=== PATIENT | female | born 1990 | race Caucasian/White ===

== ENCOUNTER 2017-07-26 21:10 | Emergency (ER) | payer OTHER ==
[2017-07-26] VITALS (10 sets, daily range): BP systolic 106–141; BP diastolic 54–70; PULSE 73–89; TEMP 98.1
[~2017-07-26 21:10] MED LIST: FOLI1 PO; IBUP600 PO; METO25 PO; PREN0.01 PO
--- NOTE | 2017-07-26 21:30 | PD ---
HPI Chief Complaint RUQ pain Date Seen: Jul 26, 2017 Time Seen: 21:26 Travel History International Travel<30 Days: No Contact w/Intl Traveler<30Days: No Known Affected Area: No History of Present Illness HPI 26y/o @ 37.2wks. She has PNC with Dr. Villavicencio. She presents today for evaluation of RUQ pain. Pt states that she has been experiencing similar pain nearly daily for a month. It occurs after she eats. It started up again this evening around 7pm. She denies LOF/VB/ctx. +FM. Weeks Gestation: 37 Para: 2 : 5 History Past Medical History Medical History: Denies Significant Hx Obstetric History Obstetric History x2 SAB x2 Past Surgical History Narrative Surgical D&C for SAB Family History Family History: Negative Social History Alcohol Use: No Tobacco Use: No Substance Abuse: No Allergies-Medications (Allergen,Severity, Reaction): Coded Allergies: codeine (Unverified Allergy, Mild, RASH, 01/30/17) Home Meds Active Scripts Ibuprofen (Motrin 600 Mg Tab) 600 Mg Tab, 600 MG PO Q6H for Pain Management, # 30 TAB Prov:Carley Mullins MD 09/10/15 Metoprolol Tartrate 25 mg (Metoprolol Tartrate 25 mg) 25 Mg Tab, 25 MG PO Q6HR Y for PALPITATIONS, #30 TAB 0 Refills Prov:Curt Valdez MD 06/23/15 Reported Medications Folic Acid (Folate 1 Mg Tab) 1 Mg Tab, 2000 MCG PO DAILY, TAB 04/29/14 Multivit/Min/Fol Ac/Iron/Pren ( Vit ( Plus)) Tab, 1 TAB PO DAILY, TAB 12/23/13 Review of Systems Except as stated in HPI: all other systems reviewed are Neg Physical Exam Narrative General: well developed, well nourished, no acute distress HEENT: normocephalic atraumatic, extraocular movements intact, neck supple Abdomen: soft, gravid, nondistended, +TTP over RUQ, no rebound, voluntary guarding present Uterus: fundus term Extremities: full range of motion Skin: normal coloration, no rashes, no suspicious skin lesions noted Neurologic: cranial nerves 2-12 grossly intact, normal muscle tone, normal gait Psychiatric: normal mood and affect, appropriate FHTs: [place]: Data Data Vital Signs Reviewed: Yes Orders Orders Vital Signs (Adult) .ON ADMISSION (07/26/17 21:24) ^ Labor Status (07/26/17 21:24) Urinalysis - C+S If Indicated (07/26/17 21:24) ^ Non Stress Test (07/26/17 21:24) Cbc No Diff, Includes Plts (07/26/17 21:24) Comprehensive Metabolic Panel (07/26/17 21:24) Protein Creat Ratio, Random Ur (07/26/17 21:24) Group B Strep: Negative MDM Plan 26y/o @ 37.2wks with RUQ pain. -- FHTs cat 1 -- toco quiet -- pt with symptoms x1m and worse with eating; suspect gallstones; CBC, CMP, Pr:Cr to r/o HELLP; RUQ US ordered Dispo to follow results Diagnosis Diagnosis: Primary Impression: 37 weeks gestation of Additional Impression: RUQ pain Phyllis Paz MD Jul 26, 2017 21:30
[2017-07-26 22:36] LABS: HEMATOCRIT 33.1 % (35.0-46.0); HEMOGLOBIN 11.3 GM/DL (11.6-15.3); MEAN CELL VOLUME 90.4 FL (80.0-100.0); MEAN CORPUSCULAR HEMOGLOBIN 30.8 PG (27.0-34.0); MEAN CORPUSCULAR HGB CONC 34.1 % (32.0-36.0); MEAN PLATELET VOLUME 9.3 FL (7.0-11.0); PLATELET COUNT 163 TH/MM3 (150-450); RED BLOOD COUNT 3.66 MIL/MM3 (4.00-5.30); RED CELL DISTRIBUTION WIDTH 13.3 % (11.6-17.2); WHITE BLOOD COUNT 9.6 TH/MM3 (4.0-11.0)
[2017-07-26 22:37] LABS: BILIRUBIN, URINE NEG (NEG); BLOOD, URINE NEG (NEG); GLUCOSE,URINE NEG (NEG); KETONE, URINE NEG (NEG); NITRITE,URINE NEG (NEG); PH, URINE 6.5 (5.0-8.5); SQUAMOUS EPITHELIAL CELL URINE 12 /hpf (0-5); URINE COLOR LIGHT-YELLOW (YELLW/STRAW); URINE LEUKOCYTE ESTERASE SMALL (NEG)
--- NOTE | 2017-07-26 22:37 | RADRPT ---
EXAM DATE/TIME: 07/26/2017 22:14 [facility] COMPARISON: No previous studies available for comparison. INDICATIONS : Right upper quadrant pain. MEDICAL HISTORY : Hypertension. Seizures. Irregulat heartbeat. Heartburn. Ebstein-kerns sundrome. SURGICAL HISTORY : Dilation and currettage. Left arm pins, removed. ENCOUNTER: Initial ACUITY: 1 month PAIN SCORE: 3/10 LOCATION: Right upper quadrant MEASUREMENTS: LIVER: 16.8 cm length COMMON DUCT: 4 mm RIGHT KIDNEY: 11.5 x 4.3 x 5.9 cm FINDINGS: LIVER: Normal echotexture without focal lesion or ductal dilatation. COMMON DUCT: No intraluminal mass or stone visualized. GALLBLADDER: Contains no stones, demonstrates no wall thickening or pericholecystic fluid. PANCREAS: The visualized portions are within normal limits. RIGHT KIDNEY: No evidence of hydronephrosis, stone, or mass. CONCLUSION: Right upper quadrant ultrasound within normal limits. Casey Busby MD on July 26, 2017 at 22:34 Board Certified Radiologist. This report was verified electronically.
[2017-07-26 22:45] LABS: ALBUMIN 2.5 GM/DL (3.4-5.0); BICARBONATE 26.8 MEQ/L (21.0-32.0); BLOOD UREA NITROGEN 7 MG/DL (7-18); CALCIUM 8.5 MG/DL (8.5-10.1); CHLORIDE 106 MEQ/L (98-107); CREATININE 0.42 MG/DL (0.50-1.00); GLOMERULAR FILTRATION RATE 184 ML/MIN (>89); GLUCOSE,RANDOM 80 MG/DL (74-106); SODIUM (NA) 138 MEQ/L (136-145)
[2017-07-26 22:48] LABS: ALKALINE PHOSPHATASE 111 U/L (45-117); ALT (GPT) 29 U/L (10-53); AST (GOT) 21 U/L (15-37); TOTAL BILIRUBIN ADULT 0.3 MG/DL (0.2-1.0); TOTAL PROTEIN 6.4 GM/DL (6.4-8.2)
== END 2017-07-26 23:33 | disposition home or self-care (01) ==
LOC: HOBED 21:10
DX: O26.893 Other specified pregnancy related conditions, third trimester (principal); R10.11 Right upper quadrant pain; Z3A.37 37 weeks gestation of pregnancy
CPT/HCPCS: 36415; 59025; 76705; 80053; 81001; 82570; 84156; 85027

== ENCOUNTER 2017-07-30 15:06 | Inpatient (IN) | payer OTHER ==
[2017-07-30] VITALS (60 sets, daily range): BP systolic 93–151; BP diastolic 37–94; PULSE 75–103; RESP 16–20; TEMP 98.2–98.9
[2017-07-30] MEDS ORDERED: MISOPROSTOL 100 MCG TAB VAGINAL ONE (15:15)
[2017-07-30] MEDS ORDERED: MINERAL OIL 10 ML VIAL TOPICAL PRN (15:15)
[2017-07-30] MEDS ORDERED: SODIUM CHLORID 0.9% 500 ML INJ 500 ML IV PRN (15:15)
[2017-07-30] MEDS ORDERED: CITRIC ACID-SODIUM CITRATE LIQ 30 ML UDC PO SCH (15:15)
[2017-07-30] MEDS ORDERED: LACTATED RINGER'S 1000 ML INJ 1,000 ML IV PRN (15:15)
[2017-07-30] MEDS ORDERED: OXYTOCIN 30 UNITS-500ML PREMIX 500 ML IV ONE (15:15)
[2017-07-30] MEDS ORDERED: LIDOCAINE HCL 1% 50 ML VIAL I-DERMAL PRN (15:15)
[2017-07-30] MEDS ORDERED: LIDOCAINE HCL 1% 50 ML VIAL INFIL PRN (15:15)
[2017-07-30] MEDS ORDERED: OXYTOCIN 30 UNITS-500ML PREMIX 500 ML IV PRN (15:30)
[2017-07-30] MEDS ORDERED: SODIUM CHLOR 0.9% 1000 ML INJ 1,000 ML IV PRN (15:35)
[2017-07-30] MEDS ORDERED: MEASLES, MUMPS, RUBELLA VACCINE 0.5 ML VIAL SQ ONE (16:00)
[2017-07-30] MEDS ORDERED: DIPHTH/TETANUS/ACEL PERTUSSIS (BOOSTER) 0.5 ML VIAL/PFS IM ONE (16:00)
[2017-07-30] MEDS: LACTATED RINGER'S 1000 ML INJ 1,000 ML IV SCH ×2 (16:58→19:30)
[2017-07-30 17:40] LABS: AUTOMATED NEUTROPHIL # 8.6 TH/MM3 (1.8-7.7); BACTERIA, URINE OCC /hpf; BASOPHIL % 0.1 % (0.0-2.0); BILIRUBIN, URINE NEG (NEG); BLOOD, URINE NEG (NEG); EOSINOPHIL # 0.1 TH/MM3 (0-0.4); EOSINOPHIL % 0.7 % (0.0-4.0); GLUCOSE,URINE NEG (NEG); HEMATOCRIT 34.9 % (35.0-46.0); KETONE, URINE NEG (NEG); LYMPH % 18.1 % (9.0-44.0); LYMPHOCYTE # 2.1 TH/MM3 (1.0-4.8); MEAN CELL VOLUME 91.1 FL (80.0-100.0); MEAN CORPUSCULAR HEMOGLOBIN 31.3 PG (27.0-34.0); MEAN CORPUSCULAR HGB CONC 34.4 % (32.0-36.0); MEAN PLATELET VOLUME 9.7 FL (7.0-11.0); MONO % 6.2 % (0.0-8.0); MONOCYTE # 0.7 TH/MM3 (0-0.9); MUCUS URINE FEW /lpf (OCC); NEUT % 74.9 % (16.0-70.0); NITRITE,URINE NEG (NEG); PH, URINE 6.5 (5.0-8.5); PLATELET COUNT 177 TH/MM3 (150-450); RED BLOOD COUNT 3.83 MIL/MM3 (4.00-5.30); RED CELL DISTRIBUTION WIDTH 13.3 % (11.6-17.2); SQUAMOUS EPITHELIAL CELL URINE 3 /hpf (0-5); URINE COLOR YELLOW (YELLW/STRAW); URINE LEUKOCYTE ESTERASE MOD (NEG); WHITE BLOOD COUNT 11.4 TH/MM3 (4.0-11.0)
[2017-07-30 18:09] LABS: ALKALINE PHOSPHATASE 115 U/L (45-117); TOTAL BILIRUBIN ADULT 0.3 MG/DL (0.2-1.0); TOTAL PROTEIN 6.9 GM/DL (6.4-8.2)
[2017-07-30 18:16] LABS: ALBUMIN 2.6 GM/DL (3.4-5.0); ALT (GPT) 21 U/L (10-53); AST (GOT) 27 U/L (15-37); BICARBONATE 24.7 MEQ/L (21.0-32.0); BLOOD UREA NITROGEN 10 MG/DL (7-18); CALCIUM 8.4 MG/DL (8.5-10.1); CHLORIDE 103 MEQ/L (98-107); CREATININE 0.48 MG/DL (0.50-1.00); GLOMERULAR FILTRATION RATE 158 ML/MIN (>89); GLUCOSE,RANDOM 80 MG/DL (74-106); SODIUM (NA) 136 MEQ/L (136-145)
--- NOTE | 2017-07-30 19:44 | PD.LABORPN ---
Subjective Subjective comfortble IV infitrated not on pit yet regular UCs mild Objective Objective strip category 1 5/90/0/ EFW 7 pelvis proven arom clear Weeks Gestation: 38 Gest Age Assessed Date: Jul 30, 2017 Gest Age Assessed Time: 19:43 Pt started active labor?: Yes Active labor start date: Jul 30, 2017 Active labor start time: 19:43 Medical induction of labor?: Yes Medical induction start date: Jul 30, 2017 Medical induction start time: 14:00 Artificial rupture of membrane: Yes Artificial ROM date: Jul 30, 2017 Artifical ROM time: 19:44 Assessment/Plan Assessment and Plan no need for mgso4 antiipate delivery soon desires Carmen Matta MD Jul 30, 2017 19:44
[2017-07-30] MEDS ORDERED: ePHEDrine/NS 25 MG/5 ML SYRINGE ONE (19:55)
[2017-07-30] MEDS ORDERED: fentaNYL 2MCG-BUPIV 0.125% INJ 100 ML ONE (19:55)
[2017-07-30] MEDS ORDERED: DO NOT ADMINISTER ANTICOAGULANTS PRN (21:15)
[2017-07-30] MEDS ORDERED: NO SYSTEM NARCOTICS PRN (21:15)
[2017-07-30] MEDS ORDERED: fentaNYL 2MCG-BUPIV 0.125% 100 ML EPIDURAL SCH (21:15)
[2017-07-30] MEDS ORDERED: LIDOCAINE HCL 1% 20 ML VIAL INFIL PRN (21:15)
[2017-07-30] MEDS ORDERED: ePHEDrine/NS 25 MG/5 ML SYRINGE IV PUSH PRN (21:15)
--- NOTE | 2017-07-30 23:43 | PD.OB.DELI ---
Weeks gestation: 38 Gest age assessed date: Jul 30, 2017 Gest age assessed time: 19:43 Pt started active labor?: Yes Active labor start date: Jul 30, 2017 Active labor start time: 19:43 Medical induction of labor?: Yes Medical induction start date: Jul 30, 2017 Medical induction start time: 14:00 Artificial rupture of membrane: Yes Artificial ROM date: Jul 30, 2017 Artifical ROM time: 19:44 Anesthesia: Epidural Episiotomy: None Vaginal Delivery: Normal Presentation: Occiput anterior Nuchal Cord: None Delayed cord clamping (45 sec): Yes Infant: Female Delivery date: Jul 30, 2017 Delivery time: 23:40 One Minute : 4 Five Minute : 8 Placenta: Spontaneous delivery Laceration: Vaginal laceration, Perineal laceration Repair: Chromic running Estimated blood loss: 300 Additional Information Long superficial left labial tear repaired with 3.0 chromic on SH second degree midline tear repaired with 3.[address] rapid second stage with two pushes and required CPAP initially mom and baby doing well Carmen Villavicencio MD Jul 30, 2017 23:43
[2017-07-30] MEDS ORDERED: ACETAMINOPHEN 325 MG TAB PO PRN (23:45)
[2017-07-30] MEDS ORDERED: DOCUSATE SODIUM 50 MG/SENNA 8.6 MG TAB PO PRN (23:45)
[2017-07-30] MEDS ORDERED: OXYTOCIN 30 UNITS-500ML PREMIX 500 ML IV SCH (23:45)
[2017-07-30] MEDS ORDERED: SODIUM CHLORIDE 0.9% FLUSH 10 ML FLUSH IV FLUSH PRN (23:45)
[2017-07-30] MEDS ORDERED: oxyCODONE/ACETAMINOPHEN 5 MG/325 MG TAB PO PRN ×2 (23:45)
[2017-07-30] MEDS ORDERED: BENZOCAINE 20% TOPICAL SPRAY 60 ML CAN TOPICAL PRN (23:45)
[2017-07-30] MEDS ORDERED: ONDANSETRON ODT 4 MG TAB PO PRN (23:45)
[2017-07-30] MEDS ORDERED: ALUMINUM/MAGNESIUM/SIMETH 30 ML CUP PO PRN (23:45)
[2017-07-30] MEDS ORDERED: ZOLPIDEM TARTRATE 5 MG TAB PO PRN (23:45)
--- NOTE | 2017-07-30 23:45 | HHI.DCPOC ---
Discharge Care Plan Report Symptoms to Your Doctor -Temperature above 100.5 degrees -Redness, of incision or excessive or foul smelling drainage -Unusual pain or calf pain -Increased vaginal bleeding -Painful or difficulty urinating -Feelings of extreme sadness or anxiety after 2 weeks Goals to Promote Your Health * To prevent worsening of your condition and complications * To maintain your health at the optimal level Directions to Meet Your Goals Take your medications as prescribed Follow your dietary instruction Follow activity as directed Ensure plenty of rest for recovery Drink fluids for hydration Keep your appointments as scheduled Take your immunizations and boosters as scheduled If your symptoms worsen call your PCP, if no PCP go to Urgent Care Center or Emergency Room Smoking is Dangerous to Your Health. Avoid second hand smoke Call the 24-hour crisis hotline for domestic abuse at Carmen Villavicencio MD Jul 30, 2017 23:45
[2017-07-31] VITALS (20 sets, daily range): BP systolic 115–139; BP diastolic 57–91; PULSE 64–120; RESP 16–18; TEMP 97.4–98.2; O2SAT 96–98
[2017-07-31] MEDS: WITCH HAZEL 50%/GLYCERIN 12.5% 40 PAD JAR TOPICAL PRN (04:24)
--- NOTE | 2017-07-31 08:19 | HHI.OB ---
Subjective Post Day: 1 Remarks doing well minimal discomfort nursed in NICU twice no complaints Objective Vitals/I&O Vital Signs Date Time Temp Pulse Resp B/P (MAP) Pulse Ox O2 Delivery O2 Flow Rate FiO2 07/30/17 22:50 18 Objective Remarks GENERAL: Well-nourished, well-developed patient. CARDIOVASCULAR: Regular rate and rhythm without murmurs, gallops, or rubs. RESPIRATORY: Breath sounds equal bilaterally. No accessory muscle use. ABDOMEN/GI: Abdomen soft, non-tender. Fundus: Firm, non-tender at umbilicus. GENITOURINARY: Light to moderate bleeding. EXTREMITIES: No cyanosis or edema, non-tender, without signs of DVT. Medications and IVs Current Medications Medications (Trade) Dose Ordered Sig/Mars Route Start Time Stop Time Status Last Admin Miscellaneous Information No systemic narcotics to be given except... UNSCH PRN .XX 07/30/17 21:15 07/31/17 21:14 Miscellaneous Information DO NOT ADMINISTER ANY ANTICOAGUL... UNSCH PRN .XX 07/30/17 21:15 07/31/17 21:14 (NS Flush) 2 ml BID IV FLUSH 07/31/17 09:00 (NS Flush) 2 ml UNSCH PRN IV FLUSH 07/30/17 23:45 (Tylenol) 650 mg Q4H PRN PO 07/30/17 23:45 07/31/17 04:24 (Motrin) 800 mg Q8H PRN PO 07/30/17 23:45 (Percocet 5-325 Mg) 1 tab Q4H PRN PO 07/30/17 23:45 (Percocet 5-325 Mg) 2 tab Q4H PRN PO 07/30/17 23:45 (Americaine 20% Top Spr) 1 spray Q4H PRN TOPICAL 07/30/17 23:45 07/31/17 04:24 (Tucks Pads) 1 applic QID PRN TOPICAL 07/30/17 23:45 07/31/17 04:24 (Agata-Colace) 2 tab Q12H PRN PO 07/30/17 23:45 (Ambien) 5 mg HS PRN PO 07/30/17 23:45 (Mag-Al Plus Susp Liq) 15 ml Q8H PRN PO 07/30/17 23:45 (Zofran Odt) 4 mg Q6H PRN PO 07/30/17 23:45 Assessment/Plan Assessment and Plan PPD 1 after Induction for atypical pre eclampsia without severe featurew infant in NICU for TTN and should come to mom today\ labial tear from rapid second stage and expulsion healing well anticipate discharge in am. Carmen Villavicencio MD Jul 31, 2017 08:19
[2017-07-31] MEDS: IBUPROFEN 800 MG TAB PO PRN ×2 (08:56→17:43)
[2017-07-31] MEDS ORDERED: SODIUM CHLORIDE 0.9% FLUSH 10 ML FLUSH IV FLUSH SCH (09:00)
[2017-08-01] MEDS: IBUPROFEN 800 MG TAB PO PRN ×2 (04:27→13:57)
[2017-08-01 08:00] VITALS: BP 121/65; PULSE 75; RESP 16; TEMP 97.8
--- NOTE | 2017-08-01 08:08 | HHI.OB ---
Subjective Post Day: 2 Remarks pt doing well, Objective Vitals/I&O Vital Signs Date Time Temp Pulse Resp B/P (MAP) Pulse Ox O2 Delivery O2 Flow Rate FiO2 07/31/17 20:00 97.5 07/31/17 20:00 64 18 97 07/31/17 20:00 133/68 (89) 07/31/17 13:31 76 07/31/17 13:30 18 96 07/31/17 13:30 115/63 (80) Objective Remarks GENERAL: Well-nourished, well-developed patient. CARDIOVASCULAR: Regular rate and rhythm without murmurs, gallops, or rubs. RESPIRATORY: Breath sounds equal bilaterally. No accessory muscle use. ABDOMEN/GI: Abdomen soft, non-tender. Fundus: Firm, non-tender at umbilicus. GENITOURINARY: Light to moderate bleeding. EXTREMITIES: No cyanosis or edema, non-tender, without signs of DVT. Medications and IVs Current Medications Medications (Trade) Dose Ordered Sig/Mars Route Start Time Stop Time Status Last Admin (NS Flush) 2 ml BID IV FLUSH 07/31/17 09:00 (NS Flush) 2 ml UNSCH PRN IV FLUSH 07/30/17 23:45 (Tylenol) 650 mg Q4H PRN PO 07/30/17 23:45 07/31/17 04:24 (Motrin) 800 mg Q8H PRN PO 07/30/17 23:45 08/01/17 04:27 (Percocet 5-325 Mg) 1 tab Q4H PRN PO 07/30/17 23:45 (Percocet 5-325 Mg) 2 tab Q4H PRN PO 07/30/17 23:45 (Americaine 20% Top Spr) 1 spray Q4H PRN TOPICAL 07/30/17 23:45 07/31/17 04:24 (Tucks Pads) 1 applic QID PRN TOPICAL 07/30/17 23:45 07/31/17 04:24 (Agata-Colace) 2 tab Q12H PRN PO 07/30/17 23:45 07/31/17 17:43 (Ambien) 5 mg HS PRN PO 07/30/17 23:45 (Mag-Al Plus Susp Liq) 15 ml Q8H PRN PO 07/30/17 23:45 (Zofran Odt) 4 mg Q6H PRN PO 07/30/17 23:45 Assessment/Plan Assessment and Plan PPD 2 after Induction for atypical pre eclampsia without severe featurew with mom\ labial tear from rapid second stage and expulsion healing well anticipate discharge today Discharge Planning routine Attending Attestation pt seen by Venita Harp MD Aug 01, 2017 08:08
[2017-08-01] MEDS ORDERED: IBUP1TAB7 PO (08:09)
[2017-08-01] MEDS: WITCH HAZEL 50%/GLYCERIN 12.5% 40 PAD JAR TOPICAL PRN (15:15)
== END 2017-08-01 15:35 | disposition home or self-care (01) | DRG 775 ==
LOC: H2EA 15:06 → H1EA 07-31 03:54
PROVIDERS: ADMIT Obstetrics & Gynecology; ATTEND Obstetrics & Gynecology
PROC: 10E0XZZ Delivery of Products of Conception, External Approach (ICD-10-PCS; principal; 2017-07-30)
PROC: 0KQM0ZZ Repair Perineum Muscle, Open Approach (ICD-10-PCS; 2017-07-30)
PROC: 0UQMXZZ Repair Vulva, External Approach (ICD-10-PCS; 2017-07-30)
PROC: 3E0P7VZ Introduction of Hormone into Female Reproductive, Via Natural or Artificial Opening (ICD-10-PCS; 2017-07-30)
PROC: 10907ZC Drainage of Amniotic Fluid, Therapeutic from Products of Conception, Via Natural or Artificial Opening (ICD-10-PCS; 2017-07-30)
DX: O14.94 Unspecified pre-eclampsia, complicating childbirth (principal); O62.3 Precipitate labor; O70.0 First degree perineal laceration during delivery; O70.1 Second degree perineal laceration during delivery; Z37.0 Single live birth; Z3A.38 38 weeks gestation of pregnancy
CPT/HCPCS: 59025; 80053; 80307; 81001; 82570; 84156; 84550; 85025; 85461; 86850; 86900; 86901; 90384; 90715; J2590; J2790; J7120